=== PATIENT | male | born 2000 | race African-American/Black ===

== ENCOUNTER → 2019-10-31 | Outpatient (CLI) ==
[~2019-10-31] MED LIST: NAPR-885 PO
== END ==
LOC: M LABSMTC 10:52 → EDUNIT# 11:25
PROVIDERS: ATTEND Anesthesiology
DX: Z01.818 Encounter for other preprocedural examination (principal); Z11.59 Encounter for screening for other viral diseases
CPT/HCPCS: C9803; U0002

== ENCOUNTER 2019-11-02 07:14 | Day surgery (SDC) | payer OTHER ==
[~2019-11-02] VITALS: Ht 185.4 cm; Wt 105.2 kg
[~2019-11-02 07:14] MED LIST changes: +BUPIVACAINE HCL 0.5% 30 ML VIAL As Ordered ONE; +LIDOCAINE 1% MDV 20ML VIAL As Ordered ONE; +LIDOCAINE 1% MDV 20ML VIAL SQ PRN; +LR 1,000 ML IV ONE; +ceFAZolin SOD 2 GM in IV 1 EA IV ONE; +dexameTHASONE 4 MG/ML 1ML VIAL (J1100 PER 1MG) As Ordered ONE
[2019-11-02] MEDS ORDERED: propofoL 200 MG/20 ML VIAL As Ordered ONE ×3 (07:54→09:41)
[2019-11-02] MEDS ORDERED: LIDOCAINE 2% 100MG/5ML SDV (FOR ANES.) As Ordered ONE (07:54)
[2019-11-02] MEDS ORDERED: dexameTHASONE 4 MG/ML 1ML VIAL (J1100 PER 1MG) As Ordered ONE (07:55)
[2019-11-02] MEDS ORDERED: ONDANSETRON 4MG/2ML VIAL As Ordered ONE (07:55)
[2019-11-02] MEDS ORDERED: MIDAZOLAM INJ 2MG/2ML VIAL (J2250 PER 1MG) As Ordered ONE (08:06)
[2019-11-02] MEDS ORDERED: fentaNYL 100 MCG/2 ML INJECTION (J3010) As Ordered ONE (08:06)
[2019-11-02 11:30] VITALS: BP 115/55
== END 2019-11-02 11:50 | disposition home or self-care (01) ==
LOC: M SDC 07:14
PROVIDERS: ATTEND Podiatrist Foot & Ankle Surgery
DX: M21.622 Bunionette of left foot (principal)
CPT/HCPCS: 28110; 88300; C1713; J0690; J1100; J2250; J2405; J3010